=== PATIENT | female | born 1965 | race Two or more races ===

== ENCOUNTER 2024-12-23 07:20 | Day surgery (SDC) | payer MEDICAID, SELFPAY ==
[2024-12-17 11:12] VITALS: BMI 30.2
--- NOTE | 2024-12-17 12:02 | EKG_ITS ---
[facility] Test Date: 2024-12-17 Pat Name: BRAIN KIRAN Department: Room: - Gender: Female Autographer: MECCA : 1965 Requested By: Pushpa Dyer Order Number: [id number] Reading MD: Pushpa Dyer Measurements Intervals Nunez Rate: 60 P: 23 NM: 151 QRS: 29 QRSD: 80 T: 42 QT: 397 QTc: 397 Interpretive Statements SINUS RHYTHM No previous ECG available for comparison /store/S0/[id number]
[2024-12-17 12:54] LABS: Basophils % (Auto) 1 % (0-2.5); Eosinophils # (Auto) 0.1 Thou/mm3 (0.0-0.5); Eosinophils % (Auto) 2 % (0-10); Hematocrit 36.4 % (36.0-46.0); Immature Granulocytes % (Auto) 0 % (0-0); Immature Granulocytes Auto 0.01 Thou/mm3 (0.00-0.00); Lymphocytes % (Auto) 28 % (10-50); Mean Corpuscular Hemoglobin 30.5 pg (25.0-35.0); Mean Corpuscular Volume 93 fL (80-100); Monocytes # (Auto) 0.5 Thou/mm3 (0.0-0.8); Monocytes % (Auto) 7 % (0-12); Neutrophils # (Auto) 4.5 Thou/mm3 (1.8-7.7); Neutrophils % (Auto) 63 % (37-80); Nucleated Red Blood Cell % 0 /100 WBC (0); Platelet Count 303 Thou/mm3 (140-440); RDW Standard Deviation 48.6 fL (36.4-46.3); Red Blood Count 3.93 Miln/mm3 (4.00-5.20); White Blood Count 7.1 Thou/mm3 (3.6-11.0)
[2024-12-17 13:03] LABS: Alanine Aminotransferase 12 U/L (10-49); Albumin, Serum 4.5 gm/dL (3.4-4.8); Albumin/Globulin Ratio 1.4 (1.2-2.2); Alkaline Phosphatase 85 U/L (46-116); Anion Gap 8 (7-16); Aspartate Amino Transferase 15 U/L (0-34); BUN/Creatinine Ratio 15 Ratio (12-20); Bilirubin,Total 0.3 mg/dL (0.3-1.2); Blood Urea Nitrogen 21 mg/dL (9-23); Calcium 9.4 mg/dL (8.3-10.6); Calcium (Corrected) 9.4 mg/dL (8.5-10.1); Carbon Dioxide 22.4 mMol/L (20.0-31.0); Chloride 112 mMol/L (98-107); Creatinine (Component) 1.4 mg/dL (0.6-1.3); Estimated Creatinine Clearance 36.9 mL/min (>60); Globulin 3.2 gm/dL (2.3-3.5); Glucose 102 mg/dL (74-106); Osmolality,Calculated 286 (275-295); Potassium 4.3 mMol/L (3.4-5.1); Sodium 142 mMol/L (136-145); Total Protein 7.7 gm/dL (5.7-8.2); eGFR 43 See Note
--- NOTE | 2024-12-22 14:22 | SUR.PREOP ---
Gregoria, pt's daughter and ride for tomorrow, notified to bring pt tomorrow at 0730.
--- NOTE | 2024-12-22 14:49 | SUR.PREOP ---
Health history of stroke and cardiac records from [address] Carvajal.
[2024-12-23] VITALS (9 sets, daily range): BP systolic 123–143; BP diastolic 69–79; PULSE 58–109; RESP 13–26; TEMP 36.4–36.6; O2SAT 95–100; BMI 30.7
--- NOTE | 2024-12-23 08:00 | CHAP ---
Prayed with patient while nurse was inserting her IV line. Patient was very thankful.
--- NOTE | 2024-12-23 10:13 | ESOP_ITS ---
Date of Procedure 12/23/24 Pre Op Diagnosis Symptomatic cholelithiasis Post Op Diagnosis Cholelithiasis with cholecystitis Procedure Laparoscopic cholecystectomy Findings Moderately distended gallbladder with gallstones and chronic cholecystitis Procedure Description Patient was brought into the operating room in supine position. After adm inistration of general endotracheal anesthesia abdomen was prepped and draped in standard surgical manner. A Veress needle was inserted through the umbilicus and pneumoperitoneum was obtained up to 15 mmHg. The Veress needle was then removed, a 5 mm infraumbilical incision was made and the 5mm trocar was inserted. Laparoscopic camera was placed. Under direct visualization a laparoscopic camera a 10 mm trocar was placed in subxiphoid and two 5 mm trocars placed in right upper quadrant. The gallbladder was identified and was noted to be moderately distended with gallstones and chronic cholecystitis. It was retracted cephalad and laterally. Dissection started near the infundibulum of gallbladder where cystic duct and gallbladder junction clearly identified. The cystic duct was circumferentially dissected off the peritoneum and surrounding inflammatory tissue. The critical view of safety was clearly demonstrated. Cystic duct was then divided between 2 endoclips proximally and one distally. The cystic artery was similarly dissected and divided. The gallbladder was then from the liver bed using electrocautery. The gallbladder was then placed inside an Endo Catch and removed from the abdomen utilizing subxiphoid trocar site. The area was copiously and thoroughly washed and irrigated, all the fluid was suctioned and the suction fluid returned clear. Hemostasis achieved using electrocautery. Endoclips noted be in place and intact without any bleeding or any leakage. Hemostasis was adequate and satisfactory. The subxiphoid trocar sites fascial defect was closed with 0 Vicryl using Endo Closure device. Instruments and trocars removed, pneumoperitoneum was evacuated and the incisions closed with 4-0 Monocryl in subcuticular fashion. Instrument needle and sponge counts were all reported to be correct X2. Patient tolerated the procedure well, was extubated, breathing spontaneously and without difficulty and was transferred to postanesthesia care in stable condition. Anesthesia GETA and local Pathology / specimen Other (Gallbladder and contents) Estimated Blood Loss 10 Condition Stable Disposition PACU Surgeon Pushpa Dyer MD Surgical Staff Operation Date: 12/23/24 09:30 Case Staff Anesthesiologist: Cipriano Chun RN First Assistant: Dianne Collins
[2024-12-23] MEDS: fentaNYL CIT INJ 50 mCg/ML AMP 2ML 25 MCG IVP (10:41)
[2024-12-23] MEDS: ACETAMINOPHEN IVPB 1,000 MG/100 ML VIAL 250 MG IV (10:44)
--- NOTE | 2024-12-23 10:53 | SUR.PHASEI ---
1016: Pt received in [facility] via gurney. Pt obtunded. Oral airway in place. Resp even, unlabored. VS stable. Surgical sites x4 to abdomen secured with dermabond. Sites clean, dry, intact with no swelling, discoloration. 1022: Oral airway dc'd. Resp even, unlabored. Pt resting with no complaints voiced. 1041: Pt awake with c/o pain to abdomen. Resp even, unlabored. VS stable. Rates pain level 8/10. Pain medication given per orders. Surgical sites remain dry, clean, intact. 1044: Acetaminophen infusion started.
--- NOTE | 2024-12-23 11:12 | SUR.PHASEII ---
1112: Pt resting with no further c/o pain. Pain level down. Resp even, unlabored, VS stable. Surgical sites remain dry, intact with swelling, discoloration.
--- NOTE | 2024-12-23 12:13 | SUR.PHASEII ---
1120: Pt states pain level down and tolerable. VS stable. Surgical sites unchanged. Daughter at bedside. 1135: Pt fuuly awake, oriented x3. Pt and daughter stated understanding of discharge instructions. Pt instructed to package pick up her prescriptions at her pharmacy. Pt discharged from Pac[facility] in stable condition.
== END 2024-12-23 11:35 | disposition home or self-care (01) ==
PROVIDERS: PCP Family Medicine; Referring Provider Surgery; Visit Provider Surgery
PROC: 0FT44ZZ Resection of Gallbladder, Percutaneous Endoscopic Approach (ICD-10-PCS; CPT 47562; principal; 2024-12-23 09:15)
DX: K80.10 Calculus of gallbladder with chronic cholecystitis without obstruction (principal); I10 Essential (primary) hypertension; Z79.899 Other long term (current) drug therapy
CPT/HCPCS: 47562; 36415; 80053; 85025; 85610; 93005; A4217; A4649; J0131; J0694; J1100; J1885; J2250; J2405; J2704; J3010; J3490